=== PATIENT | male | born 1940 | race Caucasian/White ===

== ENCOUNTER → 2018-04-07 12:14 | Outpatient (CLI) | payer MEDICARE, OTHER ==
[~2018-04-07 12:14] MED LIST: BAYER CHEWABLE81 MG PO; LISINOPRIL10 MG PO; OMEPRAZOLE20 M1 PO; ZYRTEC10 MG PO
[2018-04-14 11:42] VITALS: BMI 30.2
== END | disposition home or self-care (01) ==
LOC: D.HCCARDIO 04-03 10:30
DX: R06.02 Shortness of breath (principal); R53.83 Other fatigue

== ENCOUNTER 2018-04-14 11:05 | Outpatient (CLI) | payer MEDICARE, OTHER ==
[~2018-04-14] VITALS: Ht 188 cm; Wt 106.8 kg
--- NOTE | ~2018-04-14 | HEMODYNAMI ---
PATIENT:CARROLL RUDD MEDICAL RECORD: [id number] : 40 LOCATION:[facility] ADMISSION DATE: 04/14/18 Generatedon:04/14/201813:37 Patient name: CARROLL RUDD Patient #: [id number] SSN: : [birth year] Date of study: 04/14/2018 Page: Of Hemodynamic Procedure Report Patient Data Patient Demographics Procedure consent was obtained First Name: CARROLL Gender: Male Last Name: BLAIRE : 1940 [facility] Initial: ALETHEA Age: 77 year(s) Patient #: [id number] Race: Unknown Additional ID: [id number] Contact details Address: [address] [place] [address] [facility] State: [place] City: [place] Zip code: [address] Past Medical History Allergies: No known allergies Admission Admission Data Admission Date: 04/14/2018 Admission Time: 11:05 Lab Results Lab Result Date: 04/14/2018 Lab Result Time: 11:40 Biochemistry Name Units Result Min Max BUN mg/dl 17 --(---*)-- 7 18 Creatinine mg/dl 1.1 --(--*-)-- 0.6 1.3 CBC Name Units Result Min Max Hematocrit % 44.2 --(*---)-- 42 54 Hemoglobin g/dl 15.4 --(-*--)-- 13.5 17.5 Procedure Procedure Types Cath Procedure Diagnostic Procedure [facility] w/Coronaries Sedation Charges Moderate Sedation up to 15 minutes Procedure Description Procedure Date Procedure Date: 04/14/2018 Procedure Start Time: 13:21 Procedure End Time: 13:36 Procedure Staff Name Function Herber Bar MD Performing Physician Kian Nicholson RT Scrub Bacilio Shore RN Nurse Panchtio Hauser RT Monitor Procedure Data Cath Procedure Fluoroscopy Diagnostic fluoroscopy Total fluoroscopy Time: 4.3 time: 4.3 min min Diagnostic fluoroscopy Total fluoroscopy dose: dose: 1175 mGy 1175 mGy Contrast Material Contrast Material Type Amount (ml) Isovue 300 90 Entry Location Entry Primary Successful Side Size Upsize Upsize Entry Closure Gil ccessful Closure Location (Fr) 1 (Fr) 2 (Fr) Remarks Device Remarks Radial Right 6 Fr Mechanical artery Short Compression Estimated blood loss: 5 ml Diagnostic catheters Device Type Used For End Catheter Placement DIAGNOSTIC Siddhartha 110cm Procedure 5Fr catheter ([id number]) DIAGNOSTIC [place] 110cm 5 Procedure Fr catheter ([id number]) DIAGNOSTIC [place] 4.5 5Fr Procedure catheter (759879) Procedure Complications No complications Procedure Medications Medication Administration Route Dosage Oxygen etCO2 Nasal cannula 2 l/min Heparin Flush Bag added to field 2 bags (1000units/500ml NS) 0.9% NaCl I.V. 100 ml/hr Lidocaine 2% added to field 20 Radial Cocktail added to field 1 syringe (Verapomil 2mg/Nitro 400mcg/Heparin 1500units) Fentanyl I.V. 50 mcg Versed I.V. 1 mg Radial Cocktail I.A. 1 syringe (Verapomil 2mg/Nitro 400mcg/Heparin 1500units) Fentanyl I.V. 50 mcg Versed I.V. 1 mg Hemodynamics Rest HGB: 15.4 (g/dl) Heart Rate: 64 (bpm) Pressure Samples Time Site Value (mmHg) Purpose Heart Use Rate(bpm) 13:26 LV 101/-6,5 Snapshot 77 Gradients Valve Time Site Site Mean SEP/DFP Peak To Heart Use 1 2 (mmHg) (sec/min) Peak Rate (mmHg) (bpm) Aortic 13:26 LV AO 75 Snapshots Pre Cath Intra NCS Post Cath Vital Signs Time Heart Resp SPO2 etCO2 NIBP (mmHg) Rhythm Pain Sedation Rate (ipm) (%) (mmHg) Status Level (bpm) 13:07:05 63 16 95 0 122/70(93) NSR 0 (11) 10(A) , No pain 13:11:15 61 16 95 0 118/65(98) NSR 0 (11) 10(A) , No pain 13:15:25 67 17 96 0 114/64(87) NSR 0 (11) 10(A) , No pain 13:19:32 66 17 95 0 128/67(101) NSR 0 (11) 10(A) , No pain 13:23:45 64 16 96 11.3 114/71(91) NSR 0 (11) 9(A) , No pain 13:27:54 70 17 96 24.9 111/61(85) NSR 0 (11) 9(A) , No pain 13:32:00 65 16 96 30.2 126/68(92) NSR 0 (11) 9(A) , No pain 13:36:14 67 16 96 26.4 121/62(84) NSR 0 (11) 9(A) , No pain Medications Time Medication Route Dose Verified Delivered Reason Notes Effectiveness by by 13:09:37 Oxygen etCO2 2 l/min Herber Bacilio Per Nasal Yosvany Shore RN physician cannula 13:09:45 Heparin Flush added 2 bags Herber Bacilio used for Bag to Yosvany Shore RN procedure (1000units/500ml field NS) 13:09:54 0.9% NaCl I.V. 100 Herber Bacilio Per ml/hr Yosvany Shore RN physician 13:10:02 Lidocaine 2% added 20ml Herber Bacilio used for to vial Yosvany Shore machine builder field 13:10:10 Radial Cocktail added 1 Herber Bacilio used for (Verapomil to syringe Yosvany Shore RN procedure 2mg/Nitro field 400mcg/Heparin 1500units) 13:19:27 Fentanyl I.V. 50 mcg Herber Bacilio for sedation Yosvany Shore RN 13:19:33 Versed I.V. 1 mg Herber Bacilio for sedation Yosvany Shore RN 13:26:46 Radial Cocktail I.A. 1 Herber Herber for (Verapomil syringe Yosvany Bar MD vasodilation 2mg/Nitro 400mcg/Heparin 1500units) 13:26:51 Fentanyl I.V. 50 mcg Herber Bacilio for sedation Yosvany Shore RN 13:26:59 Versed I.V. 1 mg Herber Bacilio for sedation Yosvany Shore RN Procedure Log Time Note 12:45:04 Bacilio Shore RN sent for patient. Start room use. 12:54:05 Time tracking: Regular hours (M-F 7:00 - 5:00) 12:54:31 Plan of Care:Hemodynamics will remain stable., Cardiac rhythm will remain stable., Comfort level will be maintained., Respiratory function will remain adequate., Patient/ family verbilizes understanding of procedure., Procedure tolerated without complication., Recovers from procedure without complications.. 12:59:32 Patient received from Pre/Post Procedure Room to CCL 2 Alert and oriented. Tansferred to table in Supine position. 12:59:33 Warm blankets applied, and epi hugger turned on for patient comfort. 12:59:33 Correct patient and procedure confirmed by team. 12:59:34 Signed procedure consent form obtained from patient. 12:59:34 ECG and BP/O2 sat monitors applied to patient. 13:05:49 Vital chart was started 13:09:37 Oxygen 2 l/min etCO2 Nasal cannula was administered by Bacilio Shore RN; Per physician; 13:09:45 Heparin Flush Bag (1000units/500ml NS) 2 bags added to field was administered by Bacilio Shore RN; used for procedure; 13:09:54 0.9% NaCl 100 ml/hr I.V. was administered by Bacilio Shore RN; Per physician; 13:10:02 Lidocaine 2% 20ml vial added to field was administered by Bacilio Shore RN; used for procedure; 13:10:10 Radial Cocktail (Verapomil 2mg/Nitro 400mcg/Heparin 1500units) 1 syringe added to field was administered by Bacilio Shore RN; used for procedure; 13:14:09 Baseline sample Acquired. 13:14:12 Rhythm: sinus rhythm 13:14:13 Full Disclosure recording started 13:14:23 H&P Date Dictated: 04/07/2018 Within 30 days and on chart., H&P Addendum completed by physician on day of procedure. (MUST COMPLETE FOR ALL OUTPATIENTS). 13:14:24 Pre-procedure instructions explained to patient. 13:14:25 Pre-op teaching completed and patient verbalized understanding. 13:14:26 Family in waiting room. 13:14:28 Patient NPO since Midnight. 13:14:32 Patient allergic to No known allergies 13:14:34 Is the patient allergic to Iodine/contrast media? No. 13:14:37 Is patient on blood thinner?No 13:14:39 Patient diabetic? No. 13:14:42 Previous problem with sedation/anesthesia? No ? 13:14:43 Snore? Yes 13:14:48 Sleep apnea? Yes 13:14:49 Deviated septum? No 13:14:50 Opens mouth fully? Yes 13:14:50 Sticks out tongue? Yes 13:14:52 Airway obstruction? No ? 13:14:58 Dentures? No LOST TEETH 13:15:01 Modified Taye's test Ulnar < 7 seconds 13:15:03 Patient pain scale 0/10 ?. 13:15:07 IV patent on arrival in left forearm with 0.9% NaCl at [facility]. 13:16:11 Lab Result : Creatinine 1.1 mg/dl 13:16:11 Lab Result : BUN 17 mg/dl 13:16:11 Lab Result : Hemoglobin 15.4 g/dl 13:16:11 Lab Result : Hematocrit 44.2 % 13:16:14 Lab results completed and on chart. 13:16:16 Right Radial & Right Groin area was prepped with chlora-prep and draped in sterile fashion 13:16:17 Alarms reviewed by R. N. 13:16:17 Sharps counted by scrub and verified by R.N. 13:16:20 Use device set Radial Dx or PCI 13:16:21 ACIST Syringe (84008) opened to sterile field. 13:16:21 Medline Cath Pack ([id number]) opened to sterile field. 13:16:21 Bag Decanter (2002S) opened to sterile field. 13:16:22 ACIST Hand Control (70364) opened to sterile field. 13:16:22 ACIST Manifold (69561) opened to sterile field. 13:16:23 Tegaderm 4 x 4 (1626W) opened to sterile field. 13:16:23 MBrace Wrist Support ([id number]) opened to sterile field. 13:16:24 SHEATH 6FR Slender (92-1060) opened to sterile field. 13:16:25 DIAGNOSTIC WIRE .035 260cm J wire (180650) opened to sterile field. 13:16:28 NEEDLE Cook 21G 4cm Radial (S24364) opened to sterile field. 13:16:35 Physician arrived 13:16:35 --------ALL STOP TIME OUT------ 13:16:35 Final Timeout: patient, procedure, and site verified with staff and physician. All members of the team are in agreement. 13:16:38 Right Radial & Right Groin site verified by team. 13:16:40 Physical assessment completed. ASA score P 2 - A patient with mild systemic disease as per Herber Bar MD. 13:16:44 Sedation plan: IV Moderate Sedation Medication:Versed, Fentanyl 13:19:17 Zero performed for pressure channel P1 13:19:27 Fentanyl 50 mcg I.V. was administered by Bacilio Shore RN; for sedation; 13:19:33 Versed 1 mg I.V. was administered by Bacilio Shore RN; for sedation; 13:21:39 Procedure started. 13:21:44 Local anesthetic to right radial artery with Lidocaine 2% by Herber Bar MD.INITIAL ACCESS ONLY 13:22:02 A 6 Fr Short sheath was inserted into the Right Radial artery 13:23:38 A DIAGNOSTIC Siddhartha 110cm 5Fr catheter (114771) was advanced over the wire and used for Procedure. 13:26:07 LV gram done using MICHELLE 13:26:10 Injector settings: Ml/sec: 5, Volume: 15, 13:26:11 LV hemodynamics recorded. 13:26:25 EF : 40 % 13:26:46 Radial Cocktail (Verapomil 2mg/Nitro 400mcg/Heparin 1500units) 1 syringe I.A. was administered by Herber Bar MD; for vasodilation; 13:26:51 Fentanyl 50 mcg I.V. was administered by Bacilio Shore RN; for sedation; 13:26:56 RCA angiography performed. 13:26:59 Versed 1 mg I.V. was administered by Bacilio Shore RN; for sedation; 13:28:14 Catheter exchanged over wire. 13:28:18 A DIAGNOSTIC [place] 110cm 5 Fr catheter (958471) was advanced over the wire and used for Procedure. 13:29:45 LCA angiography performed. 13:31:34 Catheter exchanged over wire. 13:33:45 A DIAGNOSTIC [place] 4.5 5Fr catheter (254785) was advanced over the wire and used for Procedure. 13:33:49 LCA angiography performed. 13:33:57 Catheter removed. 13:34:30 TR BAND Large ([id number]) opened to sterile field. 13:34:37 Sheath removed intact; hemostasis achieved with Mechanical Compression to the Right Radial artery. 13:34:44 Procedure ended.(Physican Out) 13:34:58 Fluoroscopy time 04.30 minutes. 13:35:11 Fluoroscopy dose: 1175 mGy 13:35:11 Flurop Dose total: 1175 13:35:15 Contrast amount:Isovue 300 90ml. 13:35:16 Sharps counted by scrub and verified by R.N. 13:35:18 TR band inflated with 12cc of air. 13:35:19 Insertion/operative site no bleeding no hematoma. 13:35:30 Post-procedure physical assessment completed. ASA score P 2 - A patient with mild systemic disease as per Herber Bar MD. 13:35:32 Post procedure rhythm: unchanged. 13:35:35 Estimated blood loss: 5 ml 13:35:36 Post procedure instruction explained to patient.Patient verbalizes understanding. 13:35:37 Patient needs reinforcement of post procedure teaching. 13:36:14 Procedure type changed to Cath procedure, Diagnostic procedure, LHC, LHC w/Coronaries, Sedation Charges, Moderate Sedation up to 15 minutes 13:36:39 Procedure and supply charges have been captured, reviewed, submitted and are correct. 13:36:41 Procedure Complication : No complications 13:36:43 Vital chart was stopped 13:36:43 See physician's report for complete and final results. 13:36:45 Report given to Pre/Post Procedure Room. 13:36:47 Patient transfered to Pre/Post Procedure Room with Stretcher. 13:36:49 Procedure ended. 13:36:49 Full Disclosure recording stopped 13:36:54 End room use (Document Last) Device Usage Item Name Manufacture Quantity Catalog Hospital Part Current Minimal Lot# / Number Charge Number Stock Stock Serial# Code ACIST Acist 1 83622 [id number] [id number] [id number] 20 Syringe Medical (85459) Systems Inc Medline Medline 1 [id number] 074201 76518 714867 5 Cath Pack ([id number]) Bag Microtek 1 223735 92473 436186 5 Decanter Medical Inc. () ACIST Hand Acist 1 26300 057597 702267 768665 5 Control Medical (94037) Systems Inc ACIST Acist 1 17915 181968 533877 400512 5 Manifold Medical (49859) Systems Inc Tegaderm 4 3M 1 1626W 917948 214075 897578 5 x 4 (1626W) MBrace Advanced 1 140-1880-00 574079 33286 255600 5 Wrist Vascular Support Dynamics ([id number]) SHEATH 6FR Terumo 1 [id number] 448859 607638 375159 5 Slender (80-1060) DIAGNOSTIC [facility] 1 592452 625940 367205 127630 30 WIRE .035 260cm J wire (278872) NEEDLE [facility] 1 K07299 228986 891981 315391 5 21G 4cm Radial (D89155) DIAGNOSTIC Terumo 1 40-5023 147127 149808 757978 5 Siddhartha 110cm 5Fr catheter (966291) DIAGNOSTIC Terumo 1 40-5013 901035 646219 541254 5 [place] 110cm 5 Fr catheter (829870) DIAGNOSTIC Terumo 1 40-5012 710222 967751 248831 5 [place] 4.5 5Fr catheter (964960) TR BAND Terumo 1 [id number] 946605 911106 356215 40 Large ([id number]) Signature Audit [place] Stage Time Signature Unsigned Intra-Procedure 04/14/2018 Kian Nicholson 1:37:20 PM RT(R) Signatures Monitor : Panchito Hauser RT Signature : Date : Time : [place] [id number] [place] [address]
[2018-04-14] MEDS ORDERED: LISINOPRIL10 MG PO (11:26)
[2018-04-14] MEDS ORDERED: OMEPRAZOLE20 M1 PO (11:27)
[2018-04-14] MEDS ORDERED: ZYRTEC10 MG PO (11:27)
[2018-04-14] MEDS ORDERED: BAYER CHEWABLE81 MG PO (11:27)
[2018-04-14 11:42] VITALS: BP 128/79; Ht 188 cm; Wt 106.8 kg
[2018-04-14 11:55] LABS: BASOPHILS 1.2 % (0-2); EOSINOPHILS 1.9 % (0-7); HEMATOCRIT 44.2 % (42.0-54.0); HEMOGLOBIN 15.4 g/dL (13.5-17.5); IMMATURE GRANULOCYTES 0.3 % (0-5); LYMPHOCYTES 24.3 % (15-50); MCH 31.3 pg (26.0-34.0); MCHC 34.8 g/dL (31.0-37.0); MCV 89.8 fL (80.0-100.0); MEAN PLATELET VOLUME 8.9 fL (7.4-10.4); MONOCYTES 10.5 % (2-11); NEUTROPHILS 61.8 % (40-80); PLATELET COUNT 193 10x3/uL (130-400); RBC 4.92 10x6/uL (4.20-6.10); RDW 12.7 % (11.5-14.5); WBC 6.5 10x3/uL (4.8-10.8)
[2018-04-14 12:11] LABS: ANION GAP 13.5 mmol/L (8-16); CALCIUM 8.1 mg/dL (8.5-10.1); CARBON DIOXIDE 25.5 mmol/L (21.0-32.0); CREATININE - SERUM 1.1 mg/dL (0.6-1.3)
--- NOTE | 2018-04-14 14:05 | NUR ---
2L NC, NO RESP DISTRESS. RIGHT WRIST TR BAND CDI, NO BLEEDING OR HEMATOMA NOTED. NO C/O PAIN OR NAUSEA. VSS. FAMILY AT BEDSIDE, CALL LIGHT WITHIN REACH.
--- NOTE | 2018-04-14 14:35 | NUR ---
RESTING COMFORTABLY WITH NO C/O. RIGHT WRIST TR BAND CDI, NO BLEEDING OR HEMATOMA NOTED. DENIES ANY NEEDS AT THIS TIME. VSS. WILL CONTINUE TO MONITOR.
--- NOTE | 2018-04-14 15:00 | NUR ---
3CC OF AIR REMOVED FROM TR BAND WITH NO BLEEDING NOTED. VSS. WILL CONINUE TO MONITOR CLOSELY.
--- NOTE | 2018-04-14 15:15 | NUR ---
3CC OF AIR REMOVED FROM TR BAND WITH NO BLEEDING NOTED.
--- NOTE | 2018-04-14 15:30 | NUR ---
LEFT PIV D/C'D WITH CATHETER INTACT, BAND AID TO SITE. UP TO BEDSIDE TO GET DRESSED.
--- NOTE | 2018-04-14 15:40 | NUR ---
REMAINING AIR REMOVED FROM TR BAND WITH NO BLEEDING NOTED. DRESSING PLACED TO SITE. DISCHARGE INSTRUCTIONS GIVEN, VERBALIZED UNDERSTANDING.
--- NOTE | 2018-04-14 15:55 | NUR ---
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 LEFT FACILITY WITH FAMILY AND ALL PERSONAL BELONGINGS.
== END 2018-04-14 15:55 | disposition home or self-care (01) ==
LOC: D.CATH 11:05
PROVIDERS: Internal Medicine Cardiovascular Disease
DX: R07.9 Chest pain, unspecified (principal); R94.31 Abnormal electrocardiogram [ECG] [EKG]; I20.9 Angina pectoris, unspecified